=== PATIENT | female | born 1950 | race Caucasian/White ===

== ENCOUNTER 2017-04-03 19:30 | Emergency (ER) | payer OTHER ==
[~2017-04-03] VITALS: Ht 170.2 cm; Wt 120.1 kg
[~2017-04-03 19:30] MED LIST: ADVIN10/60 INH; ASPI325T39 PO; CEFA500C2 PO; CLOR7.5T14 PO; INSU100I2 SQ; INSUINJ4 SQ; LOSA1TAB38 PO; MECL1TAB40 PO; MULTTAB58 PO; PREG1CAP70 PO; PREG75CA PO; PROM25TA9 PO; SERT25TA PO; TRIA75TA53 PO; VNTHFA/IN INH
[2017-04-03 19:52] VITALS: TEMP 37; Ht 170.2 cm; Wt 120.1 kg
[2017-04-03] MEDS ORDERED: KETOROLAC TROMETHAMINE 60 MG/2 ML VIAL IM STA (20:10)
[2017-04-03] MEDS ORDERED: MoRPHine SULFATE 10 MG/ML CARP/VIAL IM STA (20:10)
[2017-04-03] MEDS ORDERED: INSDGIPEN SC (21:10)
[2017-04-03] MEDS ORDERED: ATOR-22 PO (21:10)
[2017-04-03] MEDS ORDERED: ZLF/100 PO (21:10)
[2017-04-03] MEDS ORDERED: LOSA100T65 PO (21:10)
--- NOTE | 2017-04-03 21:24 | DIAGNOSTIC IMAGING REPORT ---
LUMBAR SPINE WITHOUT CT DOSE: 1961.94 mGy.cm HISTORY: Pain low back pain, fall 2 wks ago TECHNIQUE: Multiaxial CT images of the lumbar spine were performed and reformatted in the sagittal and coronal plane without the use of contrast. A dose lowering technique was utilized adhering to the principles of ALARA. COMPARISON: None. FINDINGS: No fractures. No subluxation. Paraspinal soft tissues are unremarkable. Mild degenerative intervertebral disc changes throughout. Moderate reactive osteophytic change throughout. No evidence for compression deformity. IMPRESSION: Degenerative change. No acute process. The above report was generated using voice recognition software. It may contain grammatical, syntax or spelling errors. Electronically signed by: Ryan Valdez M.D. 04/03/2017 9:23 PM Dictated Date/Time: 04/03/2017 9:20 PM
[2017-04-03] MEDS ORDERED: OXYC-57 PO (21:46)
--- NOTE | 2017-04-03 21:47 | EMERGENCY ROOM VISIT NOTE ---
History Report prepared by Baron: Kati Cho Under the Supervision of: Dr. Cesar Scott D.O. First contact with patient: 20:06 Chief Complaint: BACK PAIN Stated Complaint: SEVERE LOWER BACK PAIN History of Present Illness The patient is a 66 year old female who presents to the Emergency Room with complaints of worsening low back pain for the past 3 to 4 days. She rates her pain as a 10/10 in severity. Tylenol has provided no relief and movement worsens her discomfort. This evening, her daughter and tried to get her out of bed after a nap, and she was unable to move because of pain, so she decided to come to the ED. The patient admits she fell approximately 2 weeks ago while ambulating in her kitchen and sustained 2 bruises to her low back, as well as a broken metatarsal in her left foot. She also complains of nausea, diarrhea and malodorous urine. She denies any personal history of kidney stones. 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 A total of 10 systems reviewed and were otherwise negative. 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 Surgical Problems: (1) H/O hernia repair (2) S/P cholecystectomy Family History Cancer Diabetes mellitus Gallbladder disease Heart disease Hypertension Kidney disease Kidney stones Social History Smoking Status: Never Smoker Alcohol Use: none Drug Use: none Marital Status: Housing Status: lives with significant other Occupation Status: unemployed Current/Historical Medications Scheduled Atorvastatin (Lipitor), 20 MG PO HS Fluticasone Prop/Salmeterol (Advair Diskus 100/50 60 Dose), 1 PUFF INH BID Insulin Glargine (Lantus Solostar), 62 UNITS SC BID Insulin Lispro (Human) (Humalog Kwikpen), 40 UNITS SQ BID Losartan Potassium (Cozaar), 100 MG PO DAILY Pregabalin (Lyrica), 75 MG PO TID Sertraline HCl (Sertraline HCl), 100 MG PO DAILY Triamterene/Hctz (Maxzide 75MG/50MG), 1 TAB PO QAM Scheduled PRN Aspirin (Aspirin Ec), 325 MG PO UD PRN for UNDECIDED Allergies Coded Allergies: Ampicillin (Verified Allergy, Intermediate, hives, 05/16/15) Doxycycline (Verified Allergy, Intermediate, hives, 05/16/15) Clindamycin (Verified Allergy, Unknown, STOMACH UPSET,INDIGESTION, ) Sulfamethoxazole w/Trimethoprim (Verified Allergy, Unknown, SEVERE DEHYDRATION, 05/16/15) Physical Exam Vital Signs Date Time Temp Pulse Resp B/P (MAP) Pulse Ox O2 Delivery O2 Flow Rate FiO2 04/03/17 19:52 37.0 84 20 150/89 96 Room Air Physical Exam CONSTITUTIONAL/VITAL SIGNS: Reviewed / noted above. GENERAL: Non-toxic in appearance. INTEGUMENTARY: Warm, dry, and [place]. HEAD: Normocephalic. EYES: without scleral icterus or trauma. ENT/OROPHARYNX: clear and moist. LYMPHADENOPATHY/NECK: Is supple without lymphadenopathy or meningismus. RESPIRATORY: Lungs clear and equal. CARDIOVASCULAR: Regular rate and rhythm. GI/ABDOMEN: Soft and nontender. No organomegaly or pulsatile mass. No rebound or guarding. Normal bowel sounds. EXTREMITIES: Warm and well perfused. BACK: Tenderness to palpation of the lumbar region in both the midline and right soft tissue area. No CVA tenderness. NEUROLOGICAL: Intact without focal deficits. PSYCHIATRIC: normal affect. MUSCULOSKELETAL: Normally developed with good muscle tone. Medical Decision & Procedures ER Provider Diagnostic Interpretation: Radiology results as stated below per my review and radiologist interpretation: LUMBAR SPINE WITHOUT CT DOSE: 1961.94 mGy.cm HISTORY: Pain low back pain, fall 2 wks ago TECHNIQUE: Multiaxial CT images of the lumbar spine were performed and reformatted in the sagittal and coronal plane without the use of contrast. A dose lowering technique was utilized adhering to the principles of ALARA. COMPARISON: None. FINDINGS: No fractures. No subluxation. Paraspinal soft tissues are unremarkable. Mild degenerative intervertebral disc changes throughout. Moderate reactive osteophytic change throughout. No evidence for compression deformity. IMPRESSION: Degenerative change. No acute process. The above report was generated using voice recognition software. It may contain grammatical, syntax or spelling errors. Electronically signed by: Ryan Valdez M.D. 04/03/2017 9:23 PM Medications Administered Medications (Trade) Dose Ordered Sig/Mario Alberto Route Start Time Stop Time Status Last Admin Dose Admin Morphine Sulfate (MoRPHine SULFATE INJ) 6 mg NOW STAT IM 04/03/17 20:10 04/03/17 20:12 DC 04/03/17 20:35 6 MG Ketorolac Tromethamine (Toradol Inj) 60 mg NOW STAT IM 04/03/17 20:10 04/03/17 20:12 DC 04/03/17 20:35 60 MG ED Course 2005: Previous medical records were reviewed. The patient was evaluated in room B3. A complete history and physical examination was performed. 2009: Toradol 60 mg IM, Morphine Sulfate 6 mg IM. 2138: I reevaluated the patient. She is feeling much better. I discussed her results and discharge instructions and she verbalized complete understanding and agreement. Medical Decision Differential considered includes cauda equina syndrome, conus medullaris, spinal cord compression syndrome, peripheral nerve compression, fractures or subluxations, intra-abdominal pathology such as abdominal aortic aneurysm or kidney stones, muscle strain, transverse myelitis, spinal cord injury. This is a 66-year-old female who presents to the ED with a chief complaint of low back pain. She has had up for several days. She complains primarily of it in the midline and right side. It is also little on the left. She states that her pain is worse tonight. She had difficulty getting out of bed. The patient fell 2 weeks ago. She denies striking her head. Her vital signs are stable. Her physical exam reveals discomfort with motion. She has difficulty sitting up because of increased pain. She has pain with palpation of the right paraspinal soft tissue as well as midline. CT scan lumbar spine did not show any acute process. There is degenerative changes. The patient was treated with IM morphine and IM Toradol. She was told the results. She is felt to be stable for discharge. Medication Reconcilliation Current Medication List: was personally reviewed by me Blood Pressure Screening Patient's blood pressure: Elevated blood pressure Blood pressure disposition: Elevated BP felt to be situational Impression Primary Impression: Low back pain Scribe Attestation The scribe's documentation has been prepared under my direction and personally reviewed by me in its entirety. I confirm that the note above accurately reflects all work, treatment, procedures, and medical decision making performed by me. Departure Information Dispostion Home / Self-Care Prescriptions Oxycodone/Acetaminophen 5MG/325MG (PERCOCET 5MG/325MG) Tab 1 TAB PO Q6H Y for Pain, #20 TAB Prov: Cesar Scott D.O. 04/03/17 Referrals No Doctor, Assigned (PCP) Patient Instructions Leg Low Back Pain Poss Causes, Low Back Pain Self Care, My [facility] Additional Instructions Percocet as prescribed. No driving within 6 hours of use. Do not take additional Tylenol while taking Percocet. Take ibuprofen 600 mg every 6 hours as well.
[2017-04-03 22:17] VITALS: BP 129/79; PULSE 61; O2SAT 95
== END 2017-04-03 22:18 | disposition home or self-care (01) ==
LOC: C.EDB 19:32
DX: M54.5 Low back pain (principal); J45.909 Unspecified asthma, uncomplicated; I10 Essential (primary) hypertension; E11.43 Type 2 diabetes mellitus with diabetic autonomic (poly)neuropathy; K58.9 Irritable bowel syndrome, unspecified; Z90.49 Acquired absence of other specified parts of digestive tract; Z80.9 Family history of malignant neoplasm, unspecified; Z83.3 Family history of diabetes mellitus; Z82.49 Family history of ischemic heart disease and other diseases of the circulatory system; Z84.1 Family history of disorders of kidney and ureter; Z79.4 Long term (current) use of insulin; Z79.899 Other long term (current) drug therapy

== ENCOUNTER 2017-07-01 22:32 | Inpatient (IN) | payer OTHER ==
[~2017-07-01] VITALS: Ht 167.6 cm; Wt 117.7 kg
[~2017-07-01 22:32] MED LIST changes: +ATOR-22 PO; -CEFA500C2 PO; -CLOR7.5T14 PO; +INSDGIPEN SC; -INSUINJ4 SQ; +LOSA100T65 PO; -LOSA1TAB38 PO; -MECL1TAB40 PO; -MULTTAB58 PO; +OXYC-57 PO; -PREG1CAP70 PO; -PROM25TA9 PO; -SERT25TA PO; -VNTHFA/IN INH; +ZLF/100 PO
[2017-07-01] MEDS ORDERED: DiphenhydrAMINE HCL 50 MG/ML VIAL IV STA (23:06)
[2017-07-01] MEDS ORDERED: ONDANSETRON INJ 2 MG/ML 2 ML VIAL IV STA (23:06)
[2017-07-01] MEDS ORDERED: SODIUM CHLORIDE 0.9% 1000ML 1,000 ML IV STA (23:06)
[2017-07-02] VITALS (9 sets, daily range): BP systolic 117–190; BP diastolic 66–96; PULSE 67–90; TEMP 36.7–37.1; O2SAT 94–98; BMI 41.9
[2017-07-02 00:02] LABS: BASO % 0.2 %; BASO ABS # 0.02 K/uL (0-0.2); COMPLETE YES; HEMATOCRIT 41.3 % (37-47); IG% 0.3 %; LYMPH % 7.2 %; LYMPH ABS # 0.72 K/uL (1.2-3.4); MEAN CELL VOLUME 86.6 fL (80-100); MEAN CORPUSCULAR HEMOGLOBIN 29.1 pg (25-34); MEAN CORPUSCULAR HGB CONC 33.7 g/dl (32-36); MEAN PLATELET VOLUME 9.6 fL (7.4-10.4); NEUT % 87.3 %; PLATELET COUNT 265 K/uL (130-400); RED BLOOD COUNT 4.77 M/uL (4.2-5.4); WHITE BLOOD COUNT 9.98 K/uL (4.8-10.8)
[2017-07-02] MEDS ORDERED: OSELTAMIVIR PHOSPHATE 75 MG CAP PO STA (00:09)
[2017-07-02 00:16] LABS: CALCIUM 8.4 mg/dl (8.5-10.1); CREATININE 0.78 mg/dl (0.60-1.20); POTASSIUM 3.5 mmol/L (3.5-5.1)
[2017-07-02] MEDS ORDERED: ONDANSETRON INJ 2 MG/ML 2 ML VIAL IV STA (01:55)
--- NOTE | 2017-07-02 02:16 | EMERGENCY ROOM VISIT NOTE ---
History Report prepared by Baron: Maximo Bill Under the Supervision of: Dr. Sheng Wynne M.D. First contact with patient: 23:00 Chief Complaint: FLU LIKE SX Stated Complaint: STOMACH FLU SINCE TUE,VOMIT,DIABETIC History of Present Illness The patient is a 66 year old female who presents to the Emergency Room with complaints of constant flu like symptoms that began a couple of weeks ago. She rates her discomfort as a 10/10 in severity. The patient states that she has been experiencing general aches and a cough since . She reports that starting two days ago she started to develop a fever and chills. The patient also admits to nausea that has caused her to intermittently vomit. She also reports experiencing diarrhea. The patient reports that the vomiting has worsened, which caused her to report to the ED. She admits to sick contact with her and daughter. The patient reports a history of Diabetes Mellitus. She denies having her flu shot. Source of History: patient Onset: a couple of weeks ago Position: other (global) Symptom Intensity: 10/10 Timing: constant Associated Symptoms: + fevers, + chills, + cough, + nausea, + vomiting, + diarrhea Review of Systems See HPI for pertinent positives & negatives. A total of 10 systems reviewed and were otherwise negative. 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 Surgical Problems: (1) H/O hernia repair (2) S/P cholecystectomy Family History Cancer Diabetes mellitus Gallbladder disease Heart disease Hypertension Kidney disease Kidney stones Social History Smoking Status: Never Smoker Alcohol Use: none Drug Use: none Marital Status: Housing Status: lives with significant other Occupation Status: unemployed Current/Historical Medications Scheduled Atorvastatin (Lipitor), 20 MG PO HS Fluticasone Prop/Salmeterol (Advair Diskus 100/50 60 Dose), 1 PUFF INH BID Insulin Glargine (Lantus Solostar), 70 UNITS SC BID Insulin Lispro (Human) (Humalog Kwikpen), 40 UNITS SQ BID Losartan Potassium (Cozaar), 100 MG PO DAILY Pregabalin (Lyrica), 75 MG PO TID Sertraline HCl (Sertraline HCl), 100 MG PO DAILY Triamterene/Hctz (Maxzide 75MG/50MG), 1 TAB PO QAM Scheduled PRN Aspirin (Aspirin Ec), 325 MG PO UD PRN for PRN Allergies Coded Allergies: Ampicillin (Verified Allergy, Intermediate, hives, 07/01/17) Doxycycline (Verified Allergy, Intermediate, hives, 07/01/17) Clindamycin (Verified Allergy, Unknown, STOMACH UPSET,INDIGESTION, 07/01/17 ) Sulfamethoxazole w/Trimethoprim (Verified Allergy, Unknown, SEVERE DEHYDRATION, 07/01/17) Physical Exam Vital Signs Date Time Temp Pulse Resp B/P (MAP) Pulse Ox O2 Delivery O2 Flow Rate FiO2 07/02/17 03:58 170/78 95 Nasal Cannula 2.0 07/02/17 01:40 77 22 181/82 96 Nasal Cannula 2.0 07/02/17 01:02 93 Nasal Cannula 2.0 07/02/17 01:00 73 20 85 Room Air 07/02/17 00:30 20 97 Nasal Cannula 2.0 07/02/17 00:02 87 Room Air 07/01/17 23:56 72 20 179/82 90 Room Air 07/01/17 22:38 37.0 87 16 191/135 92 Room Air Physical Exam GENERAL: Patient is unwell appearing and in moderate distress. She is persistently dry heaving. HEENT: No acute trauma, normocephalic atraumatic, mucous membranes dry, no nasal congestion, no scleral icterus. NECK: No stridor, no adenopathy, no meningismus, trachea is midline. LUNGS: No dyspnea. Clear to auscultation and equal bilaterally. No wheeze, no rhonchi. HEART: Tachycardic and regular rhythm. No murmurs, rubs, gallops appreciated. ABDOMEN: Soft, nontender, bowel sounds positive, no masses appreciated, no peritonitis. BACK: No midline tenderness, no CVA tenderness EXTREMITIES: Normal motion all extremities, no cyanosis, no edema. NEUROLOGIC: Alert and oriented, no acute motor or sensory deficits, no focal weakness, cranial nerves grossly intact. SKIN: No rash, no jaundice, no diaphoresis. Medical Decision & Procedures ER Provider Diagnostic Interpretation: X ray results are stated below per my interpretation and the radiologist's interpretation. ONE VIEW CHEST Atelectasis vs small infiltrate at the right lower base. No effusion or pneumothorax. Laboratory Results 07/01/17 23:45 Red Blood Count 4.77, Mean Corpuscular Volume 86.6, Mean Corpuscular Hemoglobin 29.1, Mean Corpuscular Hemoglobin Concent 33.7, Mean Platelet Volume 9.6, Neutrophils (%) (Auto) 87.3, Lymphocytes (%) (Auto) 7.2, Monocytes (%) (Auto) 5.0, Eosinophils (%) (Auto) 0.0, Basophils (%) (Auto) 0.2, Neutrophils # (Auto) 8.71, Lymphocytes # (Auto) 0.72, Monocytes # (Auto) 0.50, Eosinophils # (Auto) 0.00, Basophils # (Auto) 0.02 07/01/17 23:45 Test 07/01/17 23:20 07/01/17 23:45 07/02/17 04:16 Influenza Type A Antigen POS for Influ A (NEG) Influenza Type B Antigen Neg for Influ B (NEG) White Blood Count 9.98 K/uL (4.8-10.8) Red Blood Count 4.77 M/uL (4.2-5.4) Hemoglobin 13.9 g/dL (12.0-16.0) Hematocrit 41.3 % (37-47) Mean Corpuscular Volume 86.6 fL (80-100) Mean Corpuscular Hemoglobin 29.1 pg (25-34) Mean Corpuscular Hemoglobin Concent 33.7 g/dl (32-36) Platelet Count 265 K/uL (130-400) Mean Platelet Volume 9.6 fL (7.4-10.4) Neutrophils (%) (Auto) 87.3 % Lymphocytes (%) (Auto) 7.2 % Monocytes (%) (Auto) 5.0 % Eosinophils (%) (Auto) 0.0 % Basophils (%) (Auto) 0.2 % Neutrophils # (Auto) 8.71 K/uL (1.4-6.5) Lymphocytes # (Auto) 0.72 K/uL (1.2-3.4) Monocytes # (Auto) 0.50 K/uL (0.11-0.59) Eosinophils # (Auto) 0.00 K/uL (0-0.5) Basophils # (Auto) 0.02 K/uL (0-0.2) RDW Standard Deviation 43.8 fL (36.4-46.3) RDW Coefficient of Variation 13.9 % (11.5-14.5) Immature Granulocyte % (Auto) 0.3 % Immature Granulocyte # (Auto) 0.03 K/uL (0.00-0.02) Anion Gap 7.0 mmol/L (3-11) Est Creatinine Clear Calc Drug Dose 94.6 ml/min Estimated GFR () 93.1 Estimated GFR (Non- 80.3 BUN/Creatinine Ratio 23.0 (10-20) Calcium Level 8.4 mg/dl (8.5-10.1) Laboratory results as reviewed by me. Medications Administered Medications (Trade) Dose Ordered Sig/Mario Alberto Route Start Time Stop Time Status Last Admin Dose Admin Ondansetron HCl (Zofran Inj) 4 mg NOW STAT IV 07/01/17 23:06 07/01/17 23:08 DC 07/01/17 23:51 4 MG Sodium Chloride 1,000 ml @ 999 mls/hr Q1H1M STAT IV 07/01/17 23:06 07/02/17 00:06 DC 07/01/17 23:51 999 MLS/HR Diphenhydramine HCl (Benadryl Inj) 25 mg NOW STAT IV 07/01/17 23:06 07/01/17 23:08 DC 07/01/17 23:51 25 MG Oseltamivir Phosphate (Tamiflu Cap) 75 mg NOW STAT PO 07/02/17 00:09 07/02/17 00:10 DC 07/02/17 00:15 75 MG Ondansetron HCl (Zofran Inj) 4 mg NOW STAT IV 07/02/17 01:55 07/02/17 01:56 DC 07/02/17 02:04 4 MG ED Course 2302: The patient was evaluated in room B12A. A complete history and physical exam was performed. 2306: Ordered Benadryl Injection 25 mg IV, Sodium Chloride 1000 ml @ 999 mls/hr IV, Zofran Injection 4 mg IV. 2359: I reevaluated the patient who reports that her nausea slightly improved after medication. Per nursing, the patients oxygen saturation level is dropping to the mid 80s and she is being put on nasal cannula oxygen. 0009: Ordered Tamiflu Hand 75 mg PO. 0033: I reevaluated the patient and she is better, but she is still hypoxic. 0102: [facility] understands the patients case and agrees to accept the patient. The patient will be further evaluated. 0155: Ordered Zofran Injection 4 mg IV. Medical Decision Differential: Viral, Pharyngitis, Cellulitis, Pneumonia, Influenza, Meningitis, Sepsis, Bacteremia, UTI/Pyelonephritis, Endocrine, Toxicologic, amongst other pathologies entertained. 66 yr old female with history of DMII notes persistent cough a few weeks though acutely worsening with flu like illness starting 2 days ago. Persistently vomiting here which she admits history of issues with intractable vomiting. Zofran/Benadryl (only 25mg as hypoxic) with improvement in vomiting. Labs looking OK. She is flu A positive. Trialed again off O2 after 2 hours and feeling better but her O2 drops back down to mid 80s. Otherwise vitals remain stable (moderately hypertensive). No clear evidence lobar infiltrate and I suspect basilar findings are more atelectasis. While here she did have a bit of wheezing which improved after some deep breaths. She was given tamiflu and will be brought in to hospitalist service for further treatment/evaluation. Medication Reconcilliation Current Medication List: was personally reviewed by me Blood Pressure Screening Patient's blood pressure: Elevated blood pressure Monitored by hospitalist. Consults Time Called: 101 [facility] Returned Call: [phone] I [facility] the [facility] He understands the patients case and agrees to accept the patient. The patient will be further evaluated. Impression Primary Impression: Influenza Additional Impressions: Hypoxia Intractable vomiting Scribe Attestation The scribe's documentation has been prepared under my direction and personally reviewed by me in its entirety. I confirm that the note above accurately reflects all work, treatment, procedures, and medical decision making performed by me. Departure Information Dispostion Being Evaluated By Hospitalist Referrals Jake Qureshi MD (PCP) Patient Instructions My [facility] Problem Qualifiers
--- NOTE | 2017-07-02 02:24 | History and Physical ---
History & Physical Date & Time of Service: Jul 02, 2017 at 02:24 Chief Complaint: Stomach Flu Since Tue,Vomit,Diabetic Primary Care Physician: Abdiarhman Lim M.D.(SUSAN) History of Present Illness Source: patient, family Patient is a 66 yr female with PMH of DM II, HTN, Peripheral Neuropathy, Sleep Apnea, Asthma and other problems presents with history of worsening flu like symptoms since 3 days duration. Patient has been having nausea, vomiting, multiple episodes of loose watery, non bloody diarrhea, mild abdominal discomfort which have been progressively worsening. Abdominal pain is RLQ, dull , non radiating. Has poor appetite secondary to nausea. Also reports cough with greenish expectoration associated with dyspnea and fever, chills since 3 days. Denies any chest pain, dizziness, headache, dysuria, recent antibiotic use or recent travel. Admits to have family members with similar symptoms. Past Medical/Surgical History Medical Problems: (1) Asthma Status: Chronic (2) Diab Coty Wo Compl, Type Ii Or Unspec Type, Not Uncntrld Status: Chronic (3) Hypertension Status: Chronic (4) Irritable bowel syndrome Status: Chronic (5) Neuropathy of both feet Status: Chronic (6) Neuropathy of hand Status: Chronic Surgical Problems: (1) H/O hernia repair Status: Resolved (2) S/P cholecystectomy Status: Resolved Family History Cancer Diabetes mellitus Gallbladder disease Heart disease Hypertension Kidney disease Kidney stones Reviewed, Not Relevant Social History Smoking Status: Never Smoker Alcohol Use: none Drug Use: none Marital Status: Housing status: lives with family Occupational Status: unemployed Multi-Drug Resistant Organisms History of MDRO: Yes Type of MDRO: MRSA Allergies Coded Allergies: Ampicillin (Verified Allergy, Intermediate, hives, 07/01/17) Doxycycline (Verified Allergy, Intermediate, hives, 07/01/17) Clindamycin (Verified Allergy, Unknown, STOMACH UPSET,INDIGESTION, 07/01/17 ) Sulfamethoxazole w/Trimethoprim (Verified Allergy, Unknown, SEVERE DEHYDRATION, 07/01/17) Home Medications Scheduled Atorvastatin (Lipitor), 20 MG PO HS Fluticasone Prop/Salmeterol (Advair Diskus 100/50 60 Dose), 1 PUFF INH BID Insulin Glargine (Lantus Solostar), 70 UNITS SC BID Insulin Lispro (Human) (Humalog Kwikpen), 40 UNITS SQ BID Losartan Potassium (Cozaar), 100 MG PO DAILY Pregabalin (Lyrica), 75 MG PO TID Sertraline HCl (Sertraline HCl), 100 MG PO DAILY Triamterene/Hctz (Maxzide 75MG/50MG), 1 TAB PO QAM Scheduled PRN Aspirin (Aspirin Ec), 325 MG PO UD PRN for PRN Review of Systems See HPI for pertinent positives & negatives. A total of 10 systems reviewed and were otherwise negative. Physical Exam Vital Signs Date Time Temp Pulse Resp B/P (MAP) Pulse Ox O2 Delivery O2 Flow Rate FiO2 07/02/17 01:40 77 22 181/82 96 Nasal Cannula 2.0 07/02/17 01:02 93 Nasal Cannula 2.0 07/02/17 01:00 73 20 85 Room Air 07/02/17 00:30 20 97 Nasal Cannula 2.0 07/02/17 00:02 87 Room Air 07/01/17 23:56 72 20 179/82 90 Room Air 07/01/17 22:38 37.0 87 16 191/135 92 Room Air General Appearance: + mild distress, + obese Head: normocephalic, atraumatic Eyes: normal inspection, PERRL, EOMI, sclerae normal ENT: normal ENT inspection, hearing grossly normal Neck: supple, trachea midline Respiratory/Chest: chest non-tender, lungs clear, normal breath sounds, no respiratory distress, no accessory muscle use Cardiovascular: regular rate, rhythm, no edema, no murmur Abdomen/GI: normal bowel sounds, soft, + tenderness (RLQ) Back: normal inspection Extremities/Musculoskelatal: normal inspection, no pedal edema Neurologic/Psych: gum dipper II-XII nml as tested, no motor/sensory deficits, alert, normal mood/affect, oriented x 3 Skin: normal color, warm/dry Diagnostics Laboratory Results Results Past 24 Hours Test 07/01/17 23:20 07/01/17 23:45 Range/Units Influenza Type A Antigen POS for Influ A NEG Influenza Type B Antigen Neg for Influ B NEG White Blood Count 9.98 4.8-10.8 K/uL Red Blood Count 4.77 4.2-5.4 M/uL Hemoglobin 13.9 12.0-16.0 g/dL Hematocrit 41.3 37-47 % Mean Corpuscular Volume 86.6 80-100 fL Mean Corpuscular Hemoglobin 29.1 25-34 pg Mean Corpuscular Hemoglobin Concent 33.7 32-36 g/dl Platelet Count 265 130-400 K/uL Mean Platelet Volume 9.6 7.4-10.4 fL Neutrophils (%) (Auto) 87.3 % Lymphocytes (%) (Auto) 7.2 % Monocytes (%) (Auto) 5.0 % Eosinophils (%) (Auto) 0.0 % Basophils (%) (Auto) 0.2 % Neutrophils # (Auto) 8.71 1.4-6.5 K/uL Lymphocytes # (Auto) 0.72 1.2-3.4 K/uL Monocytes # (Auto) 0.50 0.11-0.59 K/uL Eosinophils # (Auto) 0.00 0-0.5 K/uL Basophils # (Auto) 0.02 0-0.2 K/uL RDW Standard Deviation 43.8 36.4-46.3 fL RDW Coefficient of Variation 13.9 11.5-14.5 % Immature Granulocyte % (Auto) 0.3 % Immature Granulocyte # (Auto) 0.03 0.00-0.02 K/uL Sodium Level 134 136-145 mmol/L Potassium Level 3.5 3.5-5.1 mmol/L Chloride Level 101 98-107 mmol/L Carbon Dioxide Level 26 21-32 mmol/L Anion Gap 7.0 3-11 mmol/L Blood Urea Nitrogen 18 7-18 mg/dl Creatinine 0.78 0.60-1.20 mg/dl Est Creatinine Clear Calc Drug Dose 94.6 ml/min Estimated GFR () 93.1 Estimated GFR (Non- 80.3 BUN/Creatinine Ratio 23.0 10-20 Random Glucose 215 70-99 mg/dl Calcium Level 8.4 8.5-10.1 mg/dl Diagnostic Radiology CXR:pending Impression Assessment and Plan Influenza/Hypoxia: H/O Asthma Started on Tamiflu Oxygen Support Nebs PRN Check Procalcitonin Hold off on Abx for now Blood cultures obtained Check Stool Studies IV fluids Antiemetics PRN DM Type II: Check A1c ISS, basal Insulin, Accu checks, Diabetic diet HTN: Elevated likely situational and Missed today's meds Continue home meds Resume diuretics when able Monitor Peripheral Neuropathy: Continue Lyrica Sleep Apnea: Intolerant to CPAP in past DVT Px: Lovenox SQ Code Status: Full Code Disposition: Expect to discharge home when stable
[2017-07-02] MEDS ORDERED: NSS + 20MEQ KCL 1000ML 1,000 ML IV SCH (02:51)
[2017-07-02] MEDS ORDERED: DEXTROSE 50% 50 ML SYR IV PRN (03:00)
[2017-07-02] MEDS ORDERED: GLUCOSE 10 TABS/TUBE PO PRN (03:00)
[2017-07-02] MEDS ORDERED: GLUCOSE 40% GEL 15 GM TUBE PO PRN (03:00)
[2017-07-02] MEDS ORDERED: GLUCAGON FOR INJ 1 MG VIAL SQ PRN (03:00)
[2017-07-02] MEDS ORDERED: ACETAMINOPHEN 325 MG TAB PO PRN (03:00)
[2017-07-02] MEDS ORDERED: HydrALAZINE HCL 20 MG/ML VIAL IV. PRN (05:30)
[2017-07-02] MEDS ORDERED: NSS + 20MEQ KCL 1000ML 1,000 ML IV ONE (05:30)
[2017-07-02] MEDS ORDERED: HydrALAZINE HCL 20 MG/ML VIAL ONE (06:00)
[2017-07-02] MEDS ORDERED: PROMETHAZINE HCL INJ 12.5 MG in SODIUM CHLORIDE 0.9% 50ML 50 ML IV STA (06:04)
[2017-07-02] MEDS: INSULIN ASPART 100 UNITS/ML 3 ML PEN SC SCH ×4 (06:18→20:49)
[2017-07-02] MEDS: INSULIN GLARGINE SOLOSTAR 100 UNITS/ML 3 ML PEN SC SCH ×2 (06:18→20:50)
[2017-07-02] MEDS: ALBUT/IPRATROP 3MG/0.5MG NEB 3 ML VIAL INH SCH ×3 (07:10→19:54)
--- NOTE | 2017-07-02 07:46 | DIAGNOSTIC IMAGING REPORT ---
CHEST ONE VIEW PORTABLE CLINICAL HISTORY: persistent cough x 2 weeks COMPARISON STUDY: Chest radiograph April 06, 2015. FINDINGS: No pneumothorax or pleural effusion is present. Mild left basilar opacity favors atelectasis or epicardial fat pad. There is no lobar consolidation. Cardiomediastinal silhouette is stable. Pulmonary vascularity is normal. IMPRESSION: Mild left basilar opacity which favors atelectasis or epicardial fat pad. No acute findings. Electronically signed by: Minor Munson M.D. 07/02/2017 7:45 AM Dictated Date/Time: 07/02/2017 7:42 AM
[2017-07-02] MEDS: ONDANSETRON INJ 2 MG/ML 2 ML VIAL IV PRN ×3 (08:09→20:41)
[2017-07-02 08:47] LABS: PROTHROMBIN TIME (PATIENT) 10.7 SECONDS (9.0-12.0)
[2017-07-02] MEDS: LOSARTAN POTASSIUM 50 MG TAB PO SCH (09:00)
[2017-07-02] MEDS: PREGABALIN 75 MG CAP PO SCH ×3 (09:00→20:56)
[2017-07-02] MEDS: SERTRALINE HCL 100 MG TAB PO SCH ×2 (09:00→16:47)
[2017-07-02] MEDS: ENOXAPARIN 40 MG/0.4 ML SYR SC SCH (10:15)
[2017-07-02] MEDS: FLUTICASONE/SALMETEROL 100/50 (ADVAIR) 14 PUFF/1 INHALER INH SCH ×2 (10:15→20:43)
[2017-07-02] MEDS: OSELTAMIVIR PHOSPHATE 75 MG CAP PO SCH ×2 (10:15→20:45)
[2017-07-02] MEDS: METHYLPREDNISOLONE IV 40 MG in SYRINGE 0 ML IV SCH (11:23)
[2017-07-02] MEDS: PROMETHAZINE HCL INJ 12.5 MG in SODIUM CHLORIDE 0.9% 50ML 50 ML IV PRN ×2 (11:23→17:36)
--- NOTE | 2017-07-02 18:28 | Progress Note ---
Internal Med Progress Note Date of Service: Jul 02, 2017. Provider Documentation: Lot of nausea and abdominal discomfort.has cough. Has some sob. Afebrile. hemodynamics stable. O Tamiflu. Will start on iv steroids as having some rhonchi and has hx of asthma. ASSESSMENT & PLAN: [] DVT PROPHYLAXIS [] DISPOSITION [] Vital Signs: Date Time Temp Pulse Resp B/P (MAP) Pulse Ox O2 Delivery O2 Flow Rate FiO2 07/02/17 15:51 Nasal Cannula 2.0 07/02/17 15:27 36.7 67 20 151/84 (106) 98 Nebulizer 07/02/17 11:45 Nasal Cannula 2.0 07/02/17 11:42 36.8 81 22 155/79 (104) 94 Room Air 07/02/17 11:13 76 20 97 Nasal Cannula 2.0 07/02/17 07:30 Nasal Cannula 2.0 07/02/17 07:20 37.1 90 22 145/76 (99) 96 Nasal Cannula 2.0 07/02/17 07:10 88 20 98 Nasal Cannula 2.0 07/02/17 05:00 36.9 88 22 190/96 98 Nasal Cannula 2.0 07/02/17 04:51 77 20 147/86 96 07/02/17 03:58 170/78 95 Nasal Cannula 2.0 07/02/17 01:40 77 22 181/82 96 Nasal Cannula 2.0 07/02/17 01:02 93 Nasal Cannula 2.0 07/02/17 01:00 73 20 85 Room Air 07/02/17 00:30 20 97 Nasal Cannula 2.0 07/02/17 00:02 87 Room Air 07/01/17 23:56 72 20 179/82 90 Room Air 07/01/17 22:38 37.0 87 16 191/135 92 Room Air Lab Results: Results Past 24 Hours Test 07/01/17 23:20 07/01/17 23:43 07/01/17 23:45 07/02/17 06:16 Range/Units Influenza Type A Antigen POS for Influ A NEG Influenza Type B Antigen Neg for Influ B NEG Procalcitonin < 0.05 0-0.5 ng/ml White Blood Count 9.98 4.8-10.8 K/uL Red Blood Count 4.77 4.2-5.4 M/uL Hemoglobin 13.9 12.0-16.0 g/dL Hematocrit 41.3 37-47 % Mean Corpuscular Volume 86.6 80-100 fL Mean Corpuscular Hemoglobin 29.1 25-34 pg Mean Corpuscular Hemoglobin Concent 33.7 32-36 g/dl Platelet Count 265 130-400 K/uL Mean Platelet Volume 9.6 7.4-10.4 fL Neutrophils (%) (Auto) 87.3 % Lymphocytes (%) (Auto) 7.2 % Monocytes (%) (Auto) 5.0 % Eosinophils (%) (Auto) 0.0 % Basophils (%) (Auto) 0.2 % Neutrophils # (Auto) 8.71 1.4-6.5 K/uL Lymphocytes # (Auto) 0.72 1.2-3.4 K/uL Monocytes # (Auto) 0.50 0.11-0.59 K/uL Eosinophils # (Auto) 0.00 0-0.5 K/uL Basophils # (Auto) 0.02 0-0.2 K/uL RDW Standard Deviation 43.8 36.4-46.3 fL RDW Coefficient of Variation 13.9 11.5-14.5 % Immature Granulocyte % (Auto) 0.3 % Immature Granulocyte # (Auto) 0.03 0.00-0.02 K/uL Sodium Level 134 136-145 mmol/L Potassium Level 3.5 3.5-5.1 mmol/L Chloride Level 101 98-107 mmol/L Carbon Dioxide Level 26 21-32 mmol/L Anion Gap 7.0 3-11 mmol/L Blood Urea Nitrogen 18 7-18 mg/dl Creatinine 0.78 0.60-1.20 mg/dl Est Creatinine Clear Calc Drug Dose 94.6 ml/min Estimated GFR () 93.1 Estimated GFR (Non- 80.3 BUN/Creatinine Ratio 23.0 10-20 Random Glucose 215 70-99 mg/dl Calcium Level 8.4 8.5-10.1 mg/dl Bedside Glucose 251 70-90 mg/dl Test 07/02/17 07:34 07/02/17 08:26 07/02/17 16:32 Range/Units Bedside Glucose 263 302 70-90 mg/dl Prothrombin Time 10.7 9.0-12.0 SECONDS Prothromb Time International Ratio 1.0 0.9-1.1 Microbiology Results 07/02/17 Blood Culture, Received Pending 07/02/17 Blood Culture, Received Pending
[2017-07-02] MEDS: ATORVASTATIN 20 MG TAB PO SCH (20:45)
[2017-07-03] VITALS (14 sets, daily range): BP systolic 116–160; BP diastolic 66–78; PULSE 67–82; TEMP 36.6–37; O2SAT 91–99
[2017-07-03] MEDS: PROMETHAZINE HCL INJ 12.5 MG in SODIUM CHLORIDE 0.9% 50ML 50 ML IV PRN ×4 (00:12→23:55)
[2017-07-03] MEDS: ONDANSETRON INJ 2 MG/ML 2 ML VIAL IV PRN ×3 (04:21→19:26)
[2017-07-03 06:33] LABS: COMPLETE YES; HEMATOCRIT 39.5 % (37-47); IG% 0.3 %; LYMPH % 12.4 %; LYMPH ABS # 1.11 K/uL (1.2-3.4); MEAN CORPUSCULAR HEMOGLOBIN 28.6 pg (25-34); MEAN CORPUSCULAR HGB CONC 32.2 g/dl (32-36); MEAN PLATELET VOLUME 9.5 fL (7.4-10.4); MONO % 9.3 %; PLATELET COUNT 260 K/uL (130-400); RED BLOOD COUNT 4.44 M/uL (4.2-5.4); WHITE BLOOD COUNT 8.92 K/uL (4.8-10.8)
[2017-07-03] MEDS: ALBUT/IPRATROP 3MG/0.5MG NEB 3 ML VIAL INH SCH ×4 (07:06→20:09)
[2017-07-03 07:15] LABS: BUN/CREATININE RATIO 25.1 (10-20); CALCIUM 8.2 mg/dl (8.5-10.1); CREATININE 0.67 mg/dl (0.60-1.20); POTASSIUM 3.4 mmol/L (3.5-5.1)
[2017-07-03] MEDS ORDERED: POTASSIUM CHLORIDE 10 MEQ TABCR PO STA (07:20)
[2017-07-03] MEDS: METHYLPREDNISOLONE IV 40 MG in SYRINGE 0 ML IV SCH (08:51)
[2017-07-03] MEDS: FLUTICASONE/SALMETEROL 100/50 (ADVAIR) 14 PUFF/1 INHALER INH SCH ×2 (08:51→21:33)
[2017-07-03] MEDS: INSULIN GLARGINE SOLOSTAR 100 UNITS/ML 3 ML PEN SC SCH ×2 (09:00→21:32)
[2017-07-03] MEDS: INSULIN ASPART 100 UNITS/ML 3 ML PEN SC SCH ×4 (09:00→21:30)
[2017-07-03] MEDS: PREGABALIN 75 MG CAP PO SCH ×3 (09:49→21:33)
[2017-07-03] MEDS: SERTRALINE HCL 100 MG TAB PO SCH (09:50)
[2017-07-03] MEDS: ENOXAPARIN 40 MG/0.4 ML SYR SC SCH (09:50)
[2017-07-03] MEDS: OSELTAMIVIR PHOSPHATE 75 MG CAP PO SCH ×2 (09:50→21:33)
[2017-07-03] MEDS: LOSARTAN POTASSIUM 50 MG TAB PO SCH (09:50)
[2017-07-03] MEDS: POTASSIUM CHLR 10 MEQ / WTR 10 MEQ in PREMIXED WATER 100 ML IV SCH ×2 (10:45→11:45)
--- NOTE | 2017-07-03 18:25 | Progress Note ---
Internal Med Progress Note Date of Service: Jul 03, 2017. Provider Documentation: still has significant nausea not able to eat because of nausea has some sob has cough denies any pain not feeling good. Exam: General-alert and awake and not in distress ENT- normal hearing Neck-no neck masses Lungs-cta b/l no wheezing no crackles present Heart-s1 and s2 heard regular rate and rhythm no murmurs Abdomen-soft BS present non tender no distension Extremities- pedal edema present no erythema Neuro-alert and awake moves extremities ASSESSMENT & PLAN: Influenza/Hypoxia: H/O Asthma- mild asthma exacerbation Started on Tamiflu oxygen and nebs prn steroids continue to monitor Nausea poor oral intake from above gentle fluids iv antiemetics DM Type II: Check A1c on Lantus and iss will monitor HTN: on losartan holding diutretics will monitor Peripheral Neuropathy: Continue Lyrica Sleep Apnea: Intolerant to CPAP in past DVT Px: Lovenox SQ Code Status: Full Code DISPOSITION monitor in tele to be determined Vital Signs: Date Time Temp Pulse Resp B/P (MAP) Pulse Ox O2 Delivery O2 Flow Rate FiO2 07/03/17 16:00 Nasal Cannula 2.0 07/03/17 15:12 37.0 77 20 145/70 (95) 91 Nasal Cannula 2.0 07/03/17 14:58 70 18 97 Room Air 07/03/17 11:30 36.6 82 22 116/66 (83) 99 Nasal Cannula 2.0 07/03/17 11:30 Nasal Cannula 2.0 07/03/17 11:11 70 18 98 Room Air 07/03/17 07:30 36.6 82 22 142/66 (91) 97 Nasal Cannula 2.0 07/03/17 07:30 Nasal Cannula 2.0 07/03/17 07:06 67 18 98 Nasal Cannula 2.0 07/03/17 05:48 37.0 70 19 160/73 (102) 92 Nasal Cannula 2.0 07/03/17 04:30 96 Nasal Cannula 2.0 07/03/17 00:00 96 Nasal Cannula 2.0 07/02/17 23:14 36.9 80 19 160/73 (102) 96 Nasal Cannula 2.0 07/02/17 20:00 37.1 72 20 117/66 (83) 96 Nasal Cannula 2.0 07/02/17 20:00 96 Nasal Cannula 2.0 07/02/17 19:56 79 18 95 Nasal Cannula 2.0 Lab Results: Results Past 24 Hours Test 07/02/17 20:20 07/03/17 06:08 07/03/17 06:18 07/03/17 11:03 Range/Units Bedside Glucose 276 199 193 70-90 mg/dl White Blood Count 8.92 4.8-10.8 K/uL Red Blood Count 4.44 4.2-5.4 M/uL Hemoglobin 12.7 12.0-16.0 g/dL Hematocrit 39.5 37-47 % Mean Corpuscular Volume 89.0 80-100 fL Mean Corpuscular Hemoglobin 28.6 25-34 pg Mean Corpuscular Hemoglobin Concent 32.2 32-36 g/dl Platelet Count 260 130-400 K/uL Mean Platelet Volume 9.5 7.4-10.4 fL Neutrophils (%) (Auto) 78.0 % Lymphocytes (%) (Auto) 12.4 % Monocytes (%) (Auto) 9.3 % Eosinophils (%) (Auto) 0.0 % Basophils (%) (Auto) 0.0 % Neutrophils # (Auto) 6.95 1.4-6.5 K/uL Lymphocytes # (Auto) 1.11 1.2-3.4 K/uL Monocytes # (Auto) 0.83 0.11-0.59 K/uL Eosinophils # (Auto) 0.00 0-0.5 K/uL Basophils # (Auto) 0.00 0-0.2 K/uL RDW Standard Deviation 45.7 36.4-46.3 fL RDW Coefficient of Variation 14.0 11.5-14.5 % Immature Granulocyte % (Auto) 0.3 % Immature Granulocyte # (Auto) 0.03 0.00-0.02 K/uL Sodium Level 141 136-145 mmol/L Potassium Level 3.4 3.5-5.1 mmol/L Chloride Level 106 98-107 mmol/L Carbon Dioxide Level 30 21-32 mmol/L Anion Gap 5.0 3-11 mmol/L Blood Urea Nitrogen 17 7-18 mg/dl Creatinine 0.67 0.60-1.20 mg/dl Est Creatinine Clear Calc Drug Dose 110.2 ml/min Estimated GFR () 107.7 Estimated GFR (Non- 92.9 BUN/Creatinine Ratio 25.1 10-20 Random Glucose 203 70-99 mg/dl Calcium Level 8.2 8.5-10.1 mg/dl Magnesium Level 2.0 1.8-2.4 mg/dl Test 07/03/17 16:21 Range/Units Bedside Glucose 246 70-90 mg/dl
[2017-07-03] MEDS: SODIUM CHLORIDE 0.9% 1000ML 1,000 ML IV SCH (19:26)
[2017-07-03] MEDS: ATORVASTATIN 20 MG TAB PO SCH (21:33)
[2017-07-04] VITALS (15 sets, daily range): BP systolic 113–184; BP diastolic 70–95; PULSE 68–90; TEMP 36.6–37; O2SAT 90–97; Ht 167.6 cm; Wt 117.7 kg
[2017-07-04] MEDS: ALBUT/IPRATROP 3MG/0.5MG NEB 3 ML VIAL INH SCH ×5 (01:53→19:01)
[2017-07-04] MEDS: ONDANSETRON INJ 2 MG/ML 2 ML VIAL IV PRN ×3 (01:57→17:16)
[2017-07-04] MEDS: PROMETHAZINE HCL INJ 12.5 MG in SODIUM CHLORIDE 0.9% 50ML 50 ML IV PRN (06:08)
[2017-07-04] MEDS: INSULIN ASPART 100 UNITS/ML 3 ML PEN SC SCH ×4 (07:00→20:42)
[2017-07-04 07:31] LABS: ESTIMATED AVERAGE GLUCOSE 192 mg/dl; HA1C FLAG Normal (Normal)
[2017-07-04 08:06] LABS: BASO % 0.2 %; BASO ABS # 0.02 K/uL (0-0.2); COMPLETE YES; HEMATOCRIT 41.2 % (37-47); IG% 0.3 %; LYMPH % 16.4 %; LYMPH ABS # 1.99 K/uL (1.2-3.4); MEAN CELL VOLUME 90.2 fL (80-100); MEAN CORPUSCULAR HEMOGLOBIN 28.7 pg (25-34); MEAN CORPUSCULAR HGB CONC 31.8 g/dl (32-36); MEAN PLATELET VOLUME 9.3 fL (7.4-10.4); MONO % 8.2 %; NEUT % 74.9 %; PLATELET COUNT 250 K/uL (130-400); RED BLOOD COUNT 4.57 M/uL (4.2-5.4); WHITE BLOOD COUNT 12.17 K/uL (4.8-10.8)
[2017-07-04] MEDS: INSULIN GLARGINE SOLOSTAR 100 UNITS/ML 3 ML PEN SC SCH ×2 (08:20→21:03)
[2017-07-04] MEDS: FLUTICASONE/SALMETEROL 100/50 (ADVAIR) 14 PUFF/1 INHALER INH SCH ×2 (08:22→20:41)
[2017-07-04] MEDS: LOSARTAN POTASSIUM 50 MG TAB PO SCH (08:22)
[2017-07-04] MEDS: PREGABALIN 75 MG CAP PO SCH ×3 (08:22→20:40)
[2017-07-04] MEDS: OSELTAMIVIR PHOSPHATE 75 MG CAP PO SCH ×2 (08:22→20:41)
[2017-07-04] MEDS: SERTRALINE HCL 100 MG TAB PO SCH (08:22)
[2017-07-04] MEDS: ENOXAPARIN 40 MG/0.4 ML SYR SC SCH (08:24)
[2017-07-04 08:43] LABS: BUN/CREATININE RATIO 27.3 (10-20); CALCIUM 8.2 mg/dl (8.5-10.1); CREATININE 0.6 mg/dl (0.60-1.20); MAGNESIUM 1.9 mg/dl (1.8-2.4); POTASSIUM 3.3 mmol/L (3.5-5.1)
[2017-07-04] MEDS ORDERED: ASPIRIN 325 MG ECTAB PO PRN (09:00)
[2017-07-04] MEDS ORDERED: POTASSIUM CHLORIDE 20 MEQ TABCR PO ONE (09:30)
--- NOTE | 2017-07-04 11:10 | Progress Note ---
Internal Med Progress Note Date of Service: Jul 04, 2017. Provider Documentation: still has significant nausea but able to take pills today still has cough and congestion and sob denies any pain request for water pill as her extremitas are edematous Exam: General-alert and awake and not in distress ENT- normal hearing Neck-no neck masses Lungs-cta b/l no wheezing mild b/l rhonchi Heart-s1 and s2 heard regular rate and rhythm no murmurs Abdomen-soft BS present non tender no distension Extremities- pedal edema present no erythema Neuro-alert and awake moves extremities ASSESSMENT & PLAN: Influenza/Hypoxia: H/O Asthma- mild asthma exacerbation Started on Tamiflu oxygen and nebs prn steroids will get cxr to check for any superimposed pneumonia will add po levaquin Nausea poor oral intake from above gentle fluids iv antiemetics DM Type II: HBA1c 83 on Lantus and iss will monitor while on steroids HTN: on losartan restart diuretics in am will monitor Peripheral Neuropathy: Continue Lyrica Sleep Apnea: Intolerant to CPAP in past DVT Px: Lovenox SQ Code Status: Full Code DISPOSITION monitor in tele to be determined Vital Signs: Date Time Temp Pulse Resp B/P (MAP) Pulse Ox O2 Delivery O2 Flow Rate FiO2 07/04/17 08:00 Nasal Cannula 2.0 07/04/17 07:21 36.6 79 20 165/81 (109) 90 Nasal Cannula 2.0 07/04/17 07:05 77 16 97 Nasal Cannula 2.0 07/04/17 04:33 88 142/84 (103) 07/04/17 04:00 94 Nasal Cannula 2.0 07/04/17 03:37 36.9 69 17 172/82 (112) 94 Nasal Cannula 2.0 07/04/17 01:54 70 16 96 Nasal Cannula 1.5 07/03/17 23:59 96 Nasal Cannula 2.0 07/03/17 23:36 36.9 78 19 146/78 (100) 96 Nasal Cannula 2.0 07/03/17 20:10 72 18 99 Nasal Cannula 1.5 07/03/17 20:00 92 Nasal Cannula 2.0 07/03/17 19:46 36.9 75 20 158/72 (100) 92 Nasal Cannula 2.0 07/03/17 16:00 Nasal Cannula 2.0 07/03/17 15:12 37.0 77 20 145/70 (95) 91 Nasal Cannula 2.0 07/03/17 14:58 70 18 97 Room Air 07/03/17 11:30 36.6 82 22 116/66 (83) 99 Nasal Cannula 2.0 07/03/17 11:30 Nasal Cannula 2.0 07/03/17 11:11 70 18 98 Room Air Lab Results: Results Past 24 Hours Test 07/03/17 16:21 07/03/17 20:01 07/04/17 06:25 07/04/17 07:44 Range/Units Bedside Glucose 246 172 110 70-90 mg/dl White Blood Count 12.17 4.8-10.8 K/uL Red Blood Count 4.57 4.2-5.4 M/uL Hemoglobin 13.1 12.0-16.0 g/dL Hematocrit 41.2 37-47 % Mean Corpuscular Volume 90.2 80-100 fL Mean Corpuscular Hemoglobin 28.7 25-34 pg Mean Corpuscular Hemoglobin Concent 31.8 32-36 g/dl Platelet Count 250 130-400 K/uL Mean Platelet Volume 9.3 7.4-10.4 fL Neutrophils (%) (Auto) 74.9 % Lymphocytes (%) (Auto) 16.4 % Monocytes (%) (Auto) 8.2 % Eosinophils (%) (Auto) 0.0 % Basophils (%) (Auto) 0.2 % Neutrophils # (Auto) 9.12 1.4-6.5 K/uL Lymphocytes # (Auto) 1.99 1.2-3.4 K/uL Monocytes # (Auto) 1.00 0.11-0.59 K/uL Eosinophils # (Auto) 0.00 0-0.5 K/uL Basophils # (Auto) 0.02 0-0.2 K/uL RDW Standard Deviation 47.5 36.4-46.3 fL RDW Coefficient of Variation 14.4 11.5-14.5 % Immature Granulocyte % (Auto) 0.3 % Immature Granulocyte # (Auto) 0.04 0.00-0.02 K/uL Sodium Level 142 136-145 mmol/L Potassium Level 3.3 3.5-5.1 mmol/L Chloride Level 106 98-107 mmol/L Carbon Dioxide Level 29 21-32 mmol/L Anion Gap 7.0 3-11 mmol/L Blood Urea Nitrogen 16 7-18 mg/dl Creatinine 0.60 0.60-1.20 mg/dl Est Creatinine Clear Calc Drug Dose 123.6 ml/min Estimated GFR () 111.6 Estimated GFR (Non- 96.3 BUN/Creatinine Ratio 27.3 10-20 Random Glucose 113 70-99 mg/dl Calcium Level 8.2 8.5-10.1 mg/dl Magnesium Level 1.9 1.8-2.4 mg/dl
[2017-07-04] MEDS ORDERED: FUROSEMIDE INJ 20 MG in SYRINGE 0 ML IV ONE (11:15)
[2017-07-04] MEDS ORDERED: NURSING VERBAL MED ORDER ONE (11:15)
[2017-07-04] MEDS: LEVOFLOXACIN 750 MG TAB PO SCH (11:57)
--- NOTE | 2017-07-04 13:18 | DIAGNOSTIC IMAGING REPORT ---
CHEST ONE VIEW PORTABLE CLINICAL HISTORY: Hypoxia, influenza. Possible pneumonia. COMPARISON STUDY: 07/01/2017 FINDINGS: The heart remains mildly enlarged. There is slight prominence of interstitial markings, finding unchanged from the prior study. There is no lobar consolidation. There are no pleural effusions. There is no overt failure.[ IMPRESSION: AP portable study. No acute findings. Electronically signed by: Yousif Vang M.D. 07/04/2017 1:17 PM Dictated Date/Time: 07/04/2017 1:16 PM
[2017-07-04] MEDS: METOCLOPRAMIDE HCL INJ 5 MG/ML 2 ML VIAL IV PRN ×2 (13:59→20:58)
[2017-07-04] MEDS: SODIUM CHLORIDE 0.9% 1000ML 1,000 ML IV SCH (14:00)
[2017-07-04] MEDS: ATORVASTATIN 20 MG TAB PO SCH (20:41)
[2017-07-04] MEDS ORDERED: PROMETHAZINE HCL INJ 12.5 MG in SODIUM CHLORIDE 0.9% 50ML 50 ML IV STA (22:04)
[2017-07-05] VITALS (11 sets, daily range): BP systolic 111–173; BP diastolic 68–83; PULSE 76–94; TEMP 36.8–36.9; O2SAT 88–97
[2017-07-05] MEDS: ONDANSETRON INJ 2 MG/ML 2 ML VIAL IV PRN ×2 (00:01→06:07)
[2017-07-05 06:26] LABS: HEMATOCRIT 42.2 % (37-47); MEAN CORPUSCULAR HEMOGLOBIN 28.6 pg (25-34); MEAN CORPUSCULAR HGB CONC 31.8 g/dl (32-36); MEAN PLATELET VOLUME 9.8 fL (7.4-10.4); PLATELET COUNT 296 K/uL (130-400); RED BLOOD COUNT 4.69 M/uL (4.2-5.4); WHITE BLOOD COUNT 10.75 K/uL (4.8-10.8)
[2017-07-05] MEDS: INSULIN ASPART 100 UNITS/ML 3 ML PEN SC SCH ×4 (06:30→21:25)
[2017-07-05 06:49] LABS: CREATININE 0.63 mg/dl (0.60-1.20)
[2017-07-05] MEDS: ALBUT/IPRATROP 3MG/0.5MG NEB 3 ML VIAL INH SCH ×4 (07:06→18:34)
[2017-07-05] MEDS: LOSARTAN POTASSIUM 50 MG TAB PO SCH (07:25)
[2017-07-05] MEDS: FLUTICASONE/SALMETEROL 100/50 (ADVAIR) 14 PUFF/1 INHALER INH SCH ×2 (07:25→19:52)
[2017-07-05] MEDS: TRIAMTERENE/HCTZ 37.5/25MG TAB PO SCH (07:26)
[2017-07-05] MEDS: SERTRALINE HCL 100 MG TAB PO SCH (07:26)
[2017-07-05] MEDS: OSELTAMIVIR PHOSPHATE 75 MG CAP PO SCH ×2 (07:26→19:54)
[2017-07-05] MEDS: INSULIN GLARGINE SOLOSTAR 100 UNITS/ML 3 ML PEN SC SCH ×2 (08:00→21:24)
[2017-07-05] MEDS ORDERED: COUGH DROP (SUGAR FREE) LOZ 24 LOZ/1 BOX ONE (08:58)
[2017-07-05] MEDS: PREGABALIN 75 MG CAP PO SCH ×3 (09:12→19:53)
[2017-07-05] MEDS: ENOXAPARIN 40 MG/0.4 ML SYR SC SCH (09:13)
[2017-07-05] MEDS: METOCLOPRAMIDE HCL INJ 5 MG/ML 2 ML VIAL IV PRN (09:30)
[2017-07-05] MEDS: SODIUM CHLORIDE 0.9% 1000ML 1,000 ML IV SCH (10:36)
[2017-07-05] MEDS: LEVOFLOXACIN 750 MG TAB PO SCH (13:03)
--- NOTE | 2017-07-05 18:10 | Progress Note ---
Progress Note Date of Service Jul 05, 2017. Progress Note Patient reports having dry heaves but no vomiting. Denies shortness of breath or chest pain or abdominal pain Exam: General-alert and awake and not in distress ENT- normal hearing Neck- no JVD Lungs-cta b/l no wheezing Heart-s1 and s2 heard regular rate and rhythm no murmurs Abdomen-soft BS present non tender no distension Extremities- no gross edema Neuro-alert and awake, moves extremities ASSESSMENT & PLAN: Influenza/Hypoxia: H/O Asthma- mild asthma exacerbation continue Tamiflu, Levaquin, Steroids breathing on room air Nausea advance diet to see if patient can tolerate solid foods antiemetics DM Type II: on Lantus and iss will monitor while on steroids HTN: On losartan, Triamterene HCTZ Peripheral Neuropathy: Continue Lyrica Sleep Apnea: Intolerant to CPAP in past DVT Px: Lovenox SQ Disposition: likely to be discharged on 07/06/17 to home with self-care
[2017-07-05] MEDS: ATORVASTATIN 20 MG TAB PO SCH (19:54)
[2017-07-06 00:20] VITALS: BP 124/78; PULSE 79; TEMP 36.7; O2SAT 95
[2017-07-06] MEDS: SODIUM CHLORIDE 0.9% 1000ML 1,000 ML IV SCH (05:50)
[2017-07-06] MEDS: ALBUT/IPRATROP 3MG/0.5MG NEB 3 ML VIAL INH SCH ×2 (07:21→11:05)
[2017-07-06 07:23] VITALS: PULSE 61; O2SAT 92
[2017-07-06 07:31] VITALS: BP 112/73; PULSE 53; TEMP 36.5; O2SAT 96
[2017-07-06] MEDS: INSULIN GLARGINE SOLOSTAR 100 UNITS/ML 3 ML PEN SC SCH (09:20)
[2017-07-06] MEDS: PREGABALIN 75 MG CAP PO SCH ×2 (09:21→14:00)
[2017-07-06] MEDS: LOSARTAN POTASSIUM 50 MG TAB PO SCH (09:21)
[2017-07-06] MEDS: SERTRALINE HCL 100 MG TAB PO SCH (09:22)
[2017-07-06] MEDS: FLUTICASONE/SALMETEROL 100/50 (ADVAIR) 14 PUFF/1 INHALER INH SCH (09:23)
[2017-07-06] MEDS: ENOXAPARIN 40 MG/0.4 ML SYR SC SCH (09:23)
[2017-07-06] MEDS: TRIAMTERENE/HCTZ 37.5/25MG TAB PO SCH (09:23)
[2017-07-06] MEDS: OSELTAMIVIR PHOSPHATE 75 MG CAP PO SCH (09:23)
[2017-07-06] MEDS: INSULIN ASPART 100 UNITS/ML 3 ML PEN SC SCH ×2 (09:25→12:26)
--- NOTE | 2017-07-06 10:07 | Progress Note ---
Internal Med Progress Note Date of Service: Jul 06, 2017. Provider Documentation: SUBJECTIVE: Patient seen and examined at bedside. Reports eating solid foods. No dry heaves. Denies shortness of breath. OBJECTIVE: Exam: General- no acute distress Eyes- EOMI Neck- no JVD Lungs- good air entry, clear to auscultation bilaterally, no crackles, no wheezing Heart- regular rate Abdomen- soft, nontender, + bowel sounds Extremities- no edema Neuro-no focal deficits, moves all extremities, ambulatory, awake and alert ASSESSMENT & PLAN: Patient presented to hospital on 07/02/17 for flu like symptoms that began a couple of weeks ago with nausea and vomiting and diarrhea 07/01/17 Influenza A positive Chest X ray 07/01/17 FINDINGS: No pneumothorax or pleural effusion is present. Mild left basilar opacity favors atelectasis or epicardial fat pad. There is no lobar consolidation. Cardiomediastinal silhouette is stable. Pulmonary vascularity is normal. Chest X ray 07/04/17 The heart remains mildly enlarged. There is slight prominence of interstitial markings, finding unchanged from the prior study. There is no lobar consolidation. There are no pleural effusions. There is no overt failure During this hospital stay patient was treated with Tamiflu BID from 07/02/17 to 07/06/17 for influenza, possible pneumonia, and hypoxia, mild asthma Also treated with Levofloxacin from 07/04 to 07/06 for possible pneumonia with influenza. Also treated with prednisone 40 mg daily from 07/05 to 07/06 Given that patient has been breathing comfortably on room air and patient is positive for influenza and there is an absence of abnormal lung findings the Tamiflu, Levofloxacin, and Prednisone can be stopped on discharge Patient remained in the hospital on 07/05/17 primarily due to nausea symptoms Patient reports in 07/06/17 that nausea symptoms have resolved and she has been able to eat solid foods. Patient will have new medications of antiemetics for nausea upon discharge. Patient to continue other home medications for hypertension and diabetes Patient to be discharged on 07/06/17 and patient is to follow up with her primary care doctor in the [facility] Vital Signs: Date Time Temp Pulse Resp B/P (MAP) Pulse Ox O2 Delivery O2 Flow Rate FiO2 07/06/17 07:31 36.5 53 18 112/73 (86) 96 Room Air 07/06/17 07:23 61 16 92 Room Air 07/06/17 00:20 36.7 79 20 124/78 (93) 95 Nasal Cannula 2.0 07/05/17 23:15 97 Nasal Cannula 2.0 07/05/17 19:00 97 Nasal Cannula 2.0 07/05/17 18:34 85 16 97 Nasal Cannula 2.0 07/05/17 16:08 92 Nasal Cannula 2.0 07/05/17 15:43 91 16 97 Nasal Cannula 2.0 07/05/17 15:25 36.8 94 18 111/69 (83) 95 Nasal Cannula 2.0 07/05/17 11:55 76 88 Lab Results: Results Past 24 Hours Test 07/05/17 11:14 07/05/17 16:24 07/05/17 20:14 07/06/17 07:43 Range/Units Bedside Glucose 155 255 165 80 70-90 mg/dl
--- NOTE | 2017-07-06 10:35 | Discharge Instructions ---
Discharge Instructions Date of Service Jul 06, 2017. Admission Reason for Admission: Hypoxia, Influenza Discharge Discharge Diagnosis / Problem: Influenza, Hypoxia, Asthma Exacerbation, Nausea Discharge Goals Goal(s): Improve function Activity Recommendations Activity Limitations: resume your previous activity Shower/Bathe: no limitations . Instructions / Follow-Up Instructions / Follow-Up Patient presented to hospital on 07/02/17 for flu like symptoms that began a couple of weeks ago with nausea and vomiting and diarrhea 07/01/17 Influenza A positive Chest X ray 07/01/17 FINDINGS: No pneumothorax or pleural effusion is present. Mild left basilar opacity favors atelectasis or epicardial fat pad. There is no lobar consolidation. Cardiomediastinal silhouette is stable. Pulmonary vascularity is normal. Chest X ray 07/04/17 The heart remains mildly enlarged. There is slight prominence of interstitial markings, finding unchanged from the prior study. There is no lobar consolidation. There are no pleural effusions. There is no overt failure During this hospital stay patient was treated with Tamiflu BID from 07/02/17 to 07/06/17 for influenza, possible pneumonia, and hypoxia, mild asthma Also treated with Levofloxacin from 07/04 to 07/06 for possible pneumonia with influenza. Also treated with prednisone 40 mg daily from 07/05 to 07/06 Given that patient has been breathing comfortably on room air and patient is positive for influenza and there is an absence of abnormal lung findings the Tamiflu, Levofloxacin, and Prednisone can be stopped on discharge Patient remained in the hospital on 07/05/17 primarily due to nausea symptoms Patient reports in 07/06/17 that nausea symptoms have resolved and she has been able to eat solid foods. Patient will have new medications of antiemetics for nausea upon discharge. Patient to continue other home medications for hypertension and diabetes Patient to be discharged on 07/06/17 and patient is to follow up with her primary care doctor in the [facility] Current Hospital Diet Patient's current hospital diet: AHA Diet (Heart Healthy), Diabetes Type 2 Diet Discharge Diet Recommended Diet: AHA Diet (Heart Healthy), Diabetes Type 2 Diet Pending Studies Studies pending at discharge: no Laboratory Results 07/05/17 05:22 07/04/17 07:44 07/05/17 05:22 Test 07/01/17 23:20 07/01/17 23:43 07/02/17 08:26 07/03/17 06:08 Influenza Type A Antigen POS for Influ A (NEG) Influenza Type B Antigen Neg for Influ B (NEG) Procalcitonin < 0.05 ng/ml (0-0.5) Prothrombin Time 10.7 SECONDS (9.0-12.0) Prothromb Time International Ratio 1.0 (0.9-1.1) Estimated Average Glucose 192 mg/dl Hemoglobin A1c 8.3 % (4.5-5.6) Test 07/04/17 07:44 07/05/17 05:22 07/06/17 07:43 Immature Granulocyte % (Auto) 0.3 % White Blood Count 12.17 K/uL (4.8-10.8) Red Blood Count 4.57 M/uL (4.2-5.4) 4.69 M/uL (4.2-5.4) Hemoglobin 13.1 g/dL (12.0-16.0) Hematocrit 41.2 % (37-47) Mean Corpuscular Volume 90.2 fL (80-100) 90.0 fL (80-100) Mean Corpuscular Hemoglobin 28.7 pg (25-34) 28.6 pg (25-34) Mean Corpuscular Hemoglobin Concent 31.8 g/dl (32-36) 31.8 g/dl (32-36) Platelet Count 250 K/uL (130-400) Mean Platelet Volume 9.3 fL (7.4-10.4) 9.8 fL (7.4-10.4) Neutrophils (%) (Auto) 74.9 % Lymphocytes (%) (Auto) 16.4 % Monocytes (%) (Auto) 8.2 % Eosinophils (%) (Auto) 0.0 % Basophils (%) (Auto) 0.2 % Neutrophils # (Auto) 9.12 K/uL (1.4-6.5) Lymphocytes # (Auto) 1.99 K/uL (1.2-3.4) Monocytes # (Auto) 1.00 K/uL (0.11-0.59) Eosinophils # (Auto) 0.00 K/uL (0-0.5) Basophils # (Auto) 0.02 K/uL (0-0.2) Immature Granulocyte # (Auto) 0.04 K/uL (0.00-0.02) Anion Gap 7.0 mmol/L (3-11) BUN/Creatinine Ratio 27.3 (10-20) Calcium Level 8.2 mg/dl (8.5-10.1) Magnesium Level 1.9 mg/dl (1.8-2.4) RDW Standard Deviation 47.2 fL (36.4-46.3) RDW Coefficient of Variation 14.3 % (11.5-14.5) Est Creatinine Clear Calc Drug Dose 117.7 ml/min Estimated GFR () 109.9 Estimated GFR (Non- 94.8 Bedside Glucose 80 mg/dl (70-90) Date/Time Source Procedure Growth Status 07/02/17 04:16 Blood Blood Culture - Preliminary NO GROWTH TO DATE. Resulted 07/05/17 06:45 Stool C.difficile Toxin B Gene (PCR) - Final Positive for C. difficile toxin B gene Complete Hemoglobin A1c Test 07/03/17 06:08 Range/Units Estimated Average Glucose 192 mg/dl Hemoglobin A1c 8.3 H 4.5-5.6 % Medical Emergencies . Who to Call and When: Medical Emergencies: If at any time you feel your situation is an emergency, please call 911 immediately. . Non-Emergent Contact Non-Emergency issues call your: Primary Care Provider . . "Provider Documentation" section prepared by Michael Rock. . VTE Core Measure Inpt VTE Proph given/why not?: Enoxaparin (Lovenox)SQ
[2017-07-06] MEDS ORDERED: ONDA8TAB62 SL (10:36)
--- NOTE | 2017-07-06 10:41 | Discharge Summary ---
Discharge Summary Date of Service Jul 06, 2017. Discharge Summary Admission Date: Jul 02, 2017 at 02:55 Discharge Date: Jul 06, 2017 Discharge Disposition: Home Principal Diagnosis: Influenza, Hypoxia, Asthma (mild), Nausea Secondary Diagnoses/Problems: Diabetes, Hypertension Medication Reconciliation New Medications: Ondansetron Odt (Zofran Odt) 8 Mg Soltab 8 MG SL Q6H PRN for Nausea for 5 Days, #20 TAB Continued Medications: Aspirin (Aspirin Ec) 325 Mg Tab 325 MG PO UD PRN for PRN Atorvastatin (Lipitor) 20 Mg Tab 20 MG PO HS, TAB Fluticasone Prop/Salmeterol (Advair Diskus 100/50 60 Dose) 1 Ea Aerp 1 PUFF INH BID, INHALER Insulin Glargine (Lantus Solostar) 100 Unit/Ml Inj 70 UNITS SC BID Insulin Lispro (Human) (Humalog Kwikpen) 100 Unit/Ml Inj 40 UNITS SQ BID Losartan Potassium (Cozaar) 100 Mg Tab 100 MG PO DAILY Pregabalin (Lyrica) 75 Mg Cap 75 MG PO TID Sertraline HCl (Sertraline HCl) 100 Mg Tab 100 MG PO DAILY Triamterene/Hctz (Maxzide 75MG/50MG) Tab 1 TAB PO QAM, TAB Admission Information HPI (per Admitting provider): Patient is a 66 yr female with PMH of DM II, HTN, Peripheral Neuropathy, Sleep Apnea, Asthma and other problems presents with history of worsening flu like symptoms since 3 days duration. Patient has been having nausea, vomiting, multiple episodes of loose watery, non bloody diarrhea, mild abdominal discomfort which have been progressively worsening. Abdominal pain is RLQ, dull , non radiating. Has poor appetite secondary to nausea. Also reports cough with greenish expectoration associated with dyspnea and fever, chills since 3 days. Denies any chest pain, dizziness, headache, dysuria, recent antibiotic use or recent travel. Admits to have family members with similar symptoms. 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 Mild left basilar opacity favors atelectasis or epicardial fat pad. There is no lobar consolidation. Cardiomediastinal silhouette is stable. Pulmonary vascularity is normal. Chest X ray 07/04/17 The heart remains mildly enlarged. There is slight prominence of interstitial markings, finding unchanged from the prior study. There is no lobar consolidation. There are no pleural effusions. There is no overt failure During this hospital stay patient was treated with Tamiflu BID from 07/02/17 to 07/06/17 for influenza, possible pneumonia, and hypoxia, mild asthma Also treated with Levofloxacin from 07/04 to 07/06 for possible pneumonia with influenza. Also treated with prednisone 40 mg daily from 07/05 to 07/06 Given that patient has been breathing comfortably on room air and patient is positive for influenza and there is an absence of abnormal lung findings the Tamiflu, Levofloxacin, and Prednisone can be stopped on discharge Patient remained in the hospital on 07/05/17 primarily due to nausea symptoms Patient reports in 07/06/17 that nausea symptoms have resolved and she has been able to eat solid foods. Patient will have new medications of antiemetics for nausea upon discharge. Patient to continue other home medications for hypertension and diabetes Patient to be discharged on 07/06/17 and patient is to follow up with her primary care doctor in the [facility] Total time spent on discharge = This includes examination of the patient, discharge planning, medication reconciliation, and communication with other providers. Discharge Instructions see above
[2017-07-06 11:03] VITALS: BP 112/73; PULSE 53; TEMP 36.5; O2SAT 96
[2017-07-06 11:06] VITALS: PULSE 100; O2SAT 94
[2017-07-06] MEDS: LEVOFLOXACIN 750 MG TAB PO SCH (11:19)
[2017-07-06] MEDS ORDERED: VANC5CAP OR (14:16)
== END 2017-07-06 14:40 | disposition home or self-care (01) | DRG 194 ==
LOC: C.EDB 22:33 → C.2T 07-02 02:55 → ENRESERV 07-02 04:29 → C.MS4W 07-04 18:51
PROVIDERS: ADMIT Internal Medicine; ATTEND Hospitalist
DX: J11.00 Influenza due to unidentified influenza virus with unspecified type of pneumonia (principal); J45.901 Unspecified asthma with (acute) exacerbation; A04.72 Enterocolitis due to Clostridium difficile, not specified as recurrent; R09.02 Hypoxemia; R11.2 Nausea with vomiting, unspecified; E11.42 Type 2 diabetes mellitus with diabetic polyneuropathy; I10 Essential (primary) hypertension; G47.30 Sleep apnea, unspecified; Z86.14 Personal history of Methicillin resistant Staphylococcus aureus infection; Z79.4 Long term (current) use of insulin; Z79.899 Other long term (current) drug therapy; Z88.0 Allergy status to penicillin; Z88.1 Allergy status to other antibiotic agents; Z88.2 Allergy status to sulfonamides; Z83.3 Family history of diabetes mellitus; Z82.49 Family history of ischemic heart disease and other diseases of the circulatory system; Z84.1 Family history of disorders of kidney and ureter